=== PATIENT | male | born 1990 | race Caucasian/White ===

== ENCOUNTER 2018-12-15 15:19 | Emergency (ER) | payer OTHER ==
[~2018-12-15] VITALS: Ht 185.4 cm; Wt 93.0 kg
[~2018-12-15 15:19] MED LIST: AMOXICILLIN500 M2 PO; AMOXICILLIN500 MG PO; AMOXIL500 MG PO; CEPHALEXIN500 M1 PO; CLARITIN10 MG PO; FLONASE ALLERG9.9 ML NAS; KEFLEX500 MG PO; MOTRIN800 MG PO; Miralax Powder255 GM PO; NAPROSYN500 MG PO; NO DAILY MEDS; PREDNISONE10 MG PO; PROCTOCREAM-HC2.5% TP; ROBITUSSIN AC 110 ML PO; ULTRAM50 MG PO; ZITHROMAX Z PA250 MG PO
[2018-12-15 15:25] VITALS: BP 131/67
[2018-12-15] MEDS ORDERED: MEDROL DOSEPAK4 MG PO (16:35)
[2018-12-15] MEDS ORDERED: METHOCARBAMOL500 M1 PO (16:35)
[2018-12-15] MEDS ORDERED: NAPROSYN500 MG PO (16:35)
== END 2018-12-15 16:47 | disposition home or self-care (01) ==
LOC: ED 15:19
DX: S39.012A Strain of muscle, fascia and tendon of lower back, initial encounter (principal); M54.6 Pain in thoracic spine; X50.0XXA Overexertion from strenuous movement or load, initial encounter; Y93.89 Activity, other specified; Y92.89 Other specified places as the place of occurrence of the external cause; Y99.8 Other external cause status